=== PATIENT | male | born 1965 | race Caucasian/White ===

== ENCOUNTER → 2016-07-03 | Outpatient (CLI) | payer OTHER ==
[~2016-07-03] MED LIST: AMITRIPTYLINE H25 M1 PO; COZAAR 50MG50 MG/TAB PO; NEXIUM 40MG40 MG PO; ZOCOR 20MG20 MG PO
[2016-07-03 09:07] LABS: HEMATOCRIT 47.2 % (42.0-52.0); HEMOGLOBIN 15.8 g/dl (13.5-18.0); MEAN CELL VOLUME 88 fl (80.0-100.0); MEAN CORPUSCULAR HEMOGLOBIN 30 pg (27.0-31.0); MEAN CORPUSCULAR HGB CONC 34 g/dl (33.0-37.0); MEAN PLATELET VOLUME 11.3 fl (7.4-10.4); PLATELET COUNT 250 K/mm3 (130-400); RED BLOOD COUNT 5.36 M/mm3 (4.20-5.60); WHITE BLOOD COUNT 6.9 K/mm3 (4.8-10.8)
[2016-07-03 09:46] LABS: ADJUSTED CALCIUM 8.9 mg/dL (8.4-10.2); ALBUMIN 4.4 gm/dL (3.5-5.0); CALCIUM 9.2 mg/dL (8.4-10.2); CREATININE, serum 0.8 mg/dL (0.66-1.25); POTASSIUM 3.9 mmol/L (3.4-5.0); TOTAL PROTEIN 7.6 gm/dL (6.4-8.2)
[2016-07-03 10:18] LABS: THYROID STIMULATING HORMONE 0.195 uIU/mL (0.465-4.680)
[2016-07-03 10:27] LABS: PH 5 (5-8); URINE APPEARANCE Hazy; URINE BILIRUBIN Negative (NEGATIVE); URINE BLOOD Negative (NEGATIVE); URINE COLOR Yellow; URINE GLUCOSE Negative (NEGATIVE); URINE KETONE Negative (NEGATIVE); URINE UROBILINOGEN Negative (NEGATIVE)
[2016-07-03 10:36] LABS: SQUAMOUS EPITHELIAL 0-2 /hpf
== END ==
LOC: COL.LAB 08:01
DX: I10 Essential (primary) hypertension (principal)

== ENCOUNTER 2016-08-04 06:53 | Day surgery (SDC) | payer OTHER ==
[~2016-08-04] VITALS: Ht 177.8 cm; Wt 124.5 kg
[~2016-08-04 06:53] MED LIST changes: -COZAAR 50MG50 MG/TAB PO; -ZOCOR 20MG20 MG PO
[2016-08-04 07:35] VITALS: BP 146/113; PULSE 113; TEMP 98.2
[2016-08-04] MEDS ORDERED: COZAAR 50MG50 MG/TAB PO (07:48)
[2016-08-04] MEDS ORDERED: ZOCOR 20MG20 MG PO (07:48)
[2016-08-04 08:55] VITALS: BP 140/97; PULSE 117; TEMP 97.7
[2016-08-04 09:10] VITALS: BP 137/95; PULSE 104; TEMP 97.8
[2016-08-04 09:55] VITALS: BP 113/95; PULSE 112
== END 2016-08-04 09:30 | disposition home or self-care (01) ==
LOC: SDCO 06:53
DX: Z86.010 Personal history of colon polyps (principal); Z80.0 Family history of malignant neoplasm of digestive organs; K63.5 Polyp of colon; K57.30 Diverticulosis of large intestine without perforation or abscess without bleeding; K64.0 First degree hemorrhoids; K58.9 Irritable bowel syndrome, unspecified; I10 Essential (primary) hypertension; E78.00 Pure hypercholesterolemia, unspecified
CPT/HCPCS: OP; J2250; J2405; J3010; J7030

== ENCOUNTER 2017-02-15 14:22 | Emergency (ER) | payer SELFPAY ==
[~2017-02-15] VITALS: Ht 180.3 cm; Wt 122.7 kg
[~2017-02-15 14:22] MED LIST changes: +COZAAR 50MG50 MG/TAB PO; +ZOCOR 20MG20 MG PO
[2017-02-15 14:24] VITALS: TEMP 98.1
[2017-02-15 15:29] LABS: ALANINE AMINOTRANSFERASE 48 U/L (21-72); ALBUMIN 4.8 gm/dL (3.5-5.0); ALKALINE PHOSPHATASE 91 U/L (50-136); ANION GAP 15 mmol/L (7-16); AST,SGOT 20 U/L (15-37); BILIRUBIN,TOTAL 0.6 mg/dL (0.0-1.0); BLOOD UREA NITROGEN 13 mg/dL (9-20); C-REACTIVE PROTEIN 2.5 mg/dL (0.0-0.9); CALCIUM 10.2 mg/dL (8.4-10.2); CARBON DIOXIDE 24 mmol/L (22-30); CHLORIDE 101 mmol/L (98-107); GLUCOSE 218 mg/dL (74-106); LIPASE 79 U/L (23-300); POTASSIUM 3.5 mmol/L (3.4-5.0); SODIUM 140 mmol/L (137-145); TOTAL PROTEIN 8.1 gm/dL (6.4-8.2)
[2017-02-15 15:41] LABS: TROPONIN-I < 0.012 ng/mL (0.000-0.034)
[2017-02-15 15:43] LABS: BASO % 0.2 % (0.0-2.0); EOS % 0.2 % (0-4.0); GRAN # 12.3 (1.4-6.5); GRAN % 81.3 % (42.2-75.2); LYMPH # 1.7 (1.2-3.4); LYMPH % 10.9 % (20.0-51.0); MEAN CELL VOLUME 85 fl (80.0-100.0); MEAN CORPUSCULAR HEMOGLOBIN 30 pg (27.0-31.0); MEAN CORPUSCULAR HGB CONC 35 g/dl (33.0-37.0); MEAN PLATELET VOLUME 12.2 fl (7.4-10.4); MONO # 1.1 (0.1-0.6); MONO % 7.1 % (1.7-9.3); PLATELET COUNT 262 K/mm3 (130-400); RED BLOOD COUNT 5.77 M/mm3 (4.20-5.60); REDCELL DISTRIBUTION WIDTH-CV 12.5 % (11.5-14.5)
[2017-02-15] MEDS ORDERED: PRILOSEC 20MG20 MG PO ×2 (18:16)
[2017-02-15 18:35] VITALS: BP 136/103; PULSE 103
[2017-02-15 18:47] LABS: COLLECTION METHOD CLEAN CATCH
[2017-02-15 19:13] LABS: MUCOUS Present /lpf; PH 5 (5-8); SQUAMOUS EPITHELIAL 0-2 /hpf; URINE APPEARANCE Cloudy; URINE BACTERIA Rare /hpf; URINE BILIRUBIN Negative (NEGATIVE); URINE BLOOD Negative (NEGATIVE); URINE COLOR Yellow; URINE GLUCOSE 1+ (NEGATIVE); URINE KETONE 1+ (NEGATIVE); URINE LEUKOCYTE ESTERASE Negative (NEGATIVE); URINE NITRATE Negative (NEGATIVE); URINE PROTEIN(semi-quant) 1+ (NEGATIVE); URINE RBC 0-2 /hpf; URINE UROBILINOGEN Negative (NEGATIVE)
== END 2017-02-15 18:46 | disposition home or self-care (01) ==
LOC: COL.ER 14:22
PROVIDERS: Family Medicine
DX: E86.0 Dehydration (principal); R10.13 Epigastric pain; I10 Essential (primary) hypertension; K21.9 Gastro-esophageal reflux disease without esophagitis; Z90.49 Acquired absence of other specified parts of digestive tract
CPT/HCPCS: J1170; J2405; J7030

== ENCOUNTER 2017-02-25 16:17 | Inpatient (IN) | payer SELFPAY ==
[~2017-02-25] VITALS: Ht 177.8 cm; Wt 123.6 kg
[~2017-02-25 16:17] MED LIST changes: +PRILOSEC 20MG20 MG PO
[2017-02-25] MEDS ORDERED: HCTZ12.5TAB (16:22)
[2017-02-25 17:05] LABS: BASO % 0.1 % (0.0-2.0); EOS % 0.3 % (0-4.0); GRAN # 11.4 (1.4-6.5); GRAN % 75.6 % (42.2-75.2); HEMATOCRIT 49.9 % (42.0-52.0); HEMOGLOBIN 17.4 g/dl (13.5-18.0); LYMPH # 2.6 (1.2-3.4); LYMPH % 17.3 % (20.0-51.0); MEAN CELL VOLUME 83 fl (80.0-100.0); MEAN CORPUSCULAR HEMOGLOBIN 29 pg (27.0-31.0); MEAN CORPUSCULAR HGB CONC 35 g/dl (33.0-37.0); MEAN PLATELET VOLUME 11.6 fl (7.4-10.4); MONO % 6.3 % (1.7-9.3); PLATELET COUNT 321 K/mm3 (130-400); RED BLOOD COUNT 5.99 M/mm3 (4.20-5.60); REDCELL DISTRIBUTION WIDTH-CV 12.5 % (11.5-14.5)
[2017-02-25 17:18] LABS: ALBUMIN 4.9 gm/dL (3.5-5.0); BILIRUBIN,TOTAL 0.7 mg/dL (0.0-1.0); C-REACTIVE PROTEIN 1.9 mg/dL (0.0-0.9); CALCIUM 10.6 mg/dL (8.4-10.2); CREATININE, serum 0.83 mg/dL (0.66-1.25); POTASSIUM 3.3 mmol/L (3.4-5.0); TOTAL PROTEIN 8.4 gm/dL (6.4-8.2)
[2017-02-25 18:02] LABS: COLLECTION METHOD CLEAN CATCH
[2017-02-25 18:09] LABS: MUCOUS Present /lpf; PH 5 (5-8); SQUAMOUS EPITHELIAL 0-2 /hpf; URINE APPEARANCE Hazy; URINE BACTERIA None Seen /hpf; URINE BILIRUBIN Negative (NEGATIVE); URINE BLOOD Negative (NEGATIVE); URINE COLOR Amber; URINE GLUCOSE 1+ (NEGATIVE); URINE KETONE 2+ (NEGATIVE); URINE LEUKOCYTE ESTERASE Negative (NEGATIVE); URINE NITRATE Negative (NEGATIVE); URINE PROTEIN(semi-quant) 2+ (NEGATIVE)
[2017-02-25 20:28] VITALS: BP 148/102; PULSE 100; TEMP 98.2
[2017-02-25 20:30] VITALS: BP 148/102; PULSE 100; TEMP 98.2
[2017-02-25 21:08] LABS: ALBUMIN 4.4 gm/dL (3.5-5.0); BILIRUBIN,TOTAL 0.6 mg/dL (0.0-1.0); CALCIUM 9.5 mg/dL (8.4-10.2); CREATININE, serum 0.76 mg/dL (0.66-1.25); POTASSIUM 3.7 mmol/L (3.4-5.0); TOTAL PROTEIN 7.6 gm/dL (6.4-8.2)
[2017-02-26] VITALS (13 sets, daily range): BP systolic 126–149; BP diastolic 84–99; PULSE 89–109; TEMP 98.1–98.4
[2017-02-26 06:47] LABS: BASO % 0.2 % (0.0-2.0); EOS # 0.1 (0.0-0.7); EOS % 0.3 % (0-4.0); GRAN % 79.4 % (42.2-75.2); HEMATOCRIT 44.6 % (42.0-52.0); LYMPH # 1.9 (1.2-3.4); LYMPH % 12.7 % (20.0-51.0); MEAN CELL VOLUME 86 fl (80.0-100.0); MEAN CORPUSCULAR HEMOGLOBIN 29 pg (27.0-31.0); MEAN CORPUSCULAR HGB CONC 34 g/dl (33.0-37.0); MEAN PLATELET VOLUME 11.7 fl (7.4-10.4); MONO # 1.1 (0.1-0.6); PLATELET COUNT 266 K/mm3 (130-400); RED BLOOD COUNT 5.19 M/mm3 (4.20-5.60); REDCELL DISTRIBUTION WIDTH-CV 12.7 % (11.5-14.5)
[2017-02-26 06:53] LABS: HEMOGLOBIN 15.1 g/dl (13.5-18.0)
[2017-02-26 07:07] LABS: CHOLESTEROL RISK RATIO 5.2
[2017-02-27 05:35] VITALS: BP 115/64; PULSE 94; TEMP 97.5
[2017-02-27 07:44] LABS: BASO % 0.3 % (0.0-2.0); EOS # 0.2 (0.0-0.7); EOS % 2.1 % (0-4.0); GRAN # 5.7 (1.4-6.5); GRAN % 63.3 % (42.2-75.2); HEMATOCRIT 44.6 % (42.0-52.0); HEMOGLOBIN 14.9 g/dl (13.5-18.0); LYMPH # 2.4 (1.2-3.4); LYMPH % 26.8 % (20.0-51.0); MEAN CELL VOLUME 87 fl (80.0-100.0); MEAN CORPUSCULAR HEMOGLOBIN 29 pg (27.0-31.0); MEAN CORPUSCULAR HGB CONC 33 g/dl (33.0-37.0); MEAN PLATELET VOLUME 11.5 fl (7.4-10.4); MONO # 0.6 (0.1-0.6); MONO % 7.1 % (1.7-9.3); PLATELET COUNT 244 K/mm3 (130-400); RED BLOOD COUNT 5.14 M/mm3 (4.20-5.60); REDCELL DISTRIBUTION WIDTH-CV 12.6 % (11.5-14.5)
[2017-02-27 08:02] LABS: CALCIUM 8.9 mg/dL (8.4-10.2); CREATININE, serum 0.6 mg/dL (0.66-1.25)
[2017-02-27 09:29] VITALS: BP 137/88; PULSE 82; TEMP 98.1
[2017-02-27 13:02] VITALS: BP 131/94; PULSE 102
== END 2017-02-27 16:30 | disposition home or self-care (01) | DRG 305 ==
LOC: COL.ER 16:17 → SURG 18:18
PROVIDERS: Family Medicine; Internal Medicine; Internal Medicine Gastroenterology; Physician Assistant
PROC: 0DB98ZX Excision of Duodenum, Via Natural or Artificial Opening Endoscopic, Diagnostic (ICD-10-PCS; 2017-02-26)
PROC: 0DB68ZX Excision of Stomach, Via Natural or Artificial Opening Endoscopic, Diagnostic (ICD-10-PCS; principal; 2017-02-26 07:30)
DX: I10 Essential (primary) hypertension (principal); E11.9 Type 2 diabetes mellitus without complications; K29.30 Chronic superficial gastritis without bleeding; K58.0 Irritable bowel syndrome with diarrhea; Z87.891 Personal history of nicotine dependence; E87.6 Hypokalemia; K21.0 Gastro-esophageal reflux disease with esophagitis
CPT/HCPCS: 99231-AI; 99232-AI; 99239; C9113; J1170; J1815; J2250; J2405; J2550; J3010; J3480; J7030

== ENCOUNTER → 2017-04-01 | Outpatient (CLI) | payer OTHER ==
[~2017-04-01] MED LIST changes: +HCTZ12.5TAB
== END ==
LOC: SUN.DIA 09:47
DX: E11.9 Type 2 diabetes mellitus without complications (principal); E78.5 Hyperlipidemia, unspecified; I10 Essential (primary) hypertension; E66.9 Obesity, unspecified; Z68.38 Body mass index [BMI] 38.0-38.9, adult; Z71.3 Dietary counseling and surveillance; Z87.891 Personal history of nicotine dependence
CPT/HCPCS: G0108

== ENCOUNTER → 2017-05-19 | Outpatient (CLI) | payer OTHER | LOC: SUN.DIA 13:02 | DX: E11.9 Type 2 diabetes mellitus without complications (principal); E78.5 Hyperlipidemia, unspecified; I10 Essential (primary) hypertension; E66.9 Obesity, unspecified; Z68.38 Body mass index [BMI] 38.0-38.9, adult; Z71.3 Dietary counseling and surveillance; Z87.891 Personal history of nicotine dependence | CPT/HCPCS: G0108 ==

== ENCOUNTER → 2017-08-24 | Outpatient (CLI) | payer OTHER | LOC: SUN.DIA 08:48 | DX: E11.9 Type 2 diabetes mellitus without complications (principal); E78.5 Hyperlipidemia, unspecified; I10 Essential (primary) hypertension; E66.9 Obesity, unspecified; Z68.38 Body mass index [BMI] 38.0-38.9, adult; Z71.3 Dietary counseling and surveillance; Z87.891 Personal history of nicotine dependence | CPT/HCPCS: G0108 ==

== ENCOUNTER → 2017-08-31 | Outpatient (CLI) | payer OTHER ==
[2017-08-31 12:13] LABS: HEMATOCRIT 48.6 % (42.0-52.0); HEMOGLOBIN 16.7 g/dl (13.5-18.0)
[2017-08-31 12:23] LABS: ALBUMIN 4.5 gm/dL (3.5-5.0); BILIRUBIN,TOTAL 0.5 mg/dL (0.0-1.0); CHOLESTEROL RISK RATIO 4.2; CREATININE, serum 0.71 mg/dL (0.66-1.25); POTASSIUM 4.1 mmol/L (3.4-5.0); TOTAL PROTEIN 7.5 gm/dL (6.4-8.2)
[2017-08-31 12:53] LABS: TSH w REFLEX 0.28 uIU/mL (0.465-4.680)
== END ==
LOC: ZLAB.FHCC 11:52
PROVIDERS: Internal Medicine
DX: Z01.89 Encounter for other specified special examinations (principal)

== ENCOUNTER → 2017-12-28 | Outpatient (CLI) | payer OTHER | LOC: SUN.DIA 08:27 | DX: E11.9 Type 2 diabetes mellitus without complications (principal); E78.5 Hyperlipidemia, unspecified; I10 Essential (primary) hypertension; E66.9 Obesity, unspecified | CPT/HCPCS: G0108 ==

== ENCOUNTER → 2018-03-16 | Outpatient (CLI) | payer OTHER | LOC: COL.RAD 13:22 | DX: M25.561 Pain in right knee (principal) ==

== ENCOUNTER → 2018-06-22 | Outpatient (CLI) | payer OTHER ==
[2018-06-22 09:24] LABS: ALBUMIN 4.4 gm/dL (3.5-5.0); BILIRUBIN UNCONJUGATED 0.3 mg/dL (0.0-1.1); BILIRUBIN,DIRECT 0.1 mg/dL (0.0-0.4); BILIRUBIN,TOTAL 0.3 mg/dL (0.0-1.0); TOTAL PROTEIN 7.5 gm/dL (6.4-8.2)
== END ==
LOC: COL.LAB 08:39
PROVIDERS: Internal Medicine Gastroenterology
DX: R10.11 Right upper quadrant pain (principal)

== ENCOUNTER → 2018-06-27 | Outpatient (CLI) | payer OTHER | LOC: SUN.DIA 13:25 | DX: E11.9 Type 2 diabetes mellitus without complications (principal); E78.5 Hyperlipidemia, unspecified; I10 Essential (primary) hypertension; E66.9 Obesity, unspecified | CPT/HCPCS: G0108 ==

== ENCOUNTER → 2018-09-02 | Outpatient (CLI) | payer OTHER ==
[2018-09-02 07:27] LABS: HEMATOCRIT 48.4 % (42.0-52.0); HEMOGLOBIN 16.2 g/dl (13.5-18.0)
[2018-09-02 07:38] LABS: ALBUMIN 4.4 gm/dL (3.5-5.0); BILIRUBIN,TOTAL 0.6 mg/dL (0.0-1.0); CALCIUM 9.9 mg/dL (8.4-10.2); CHOLESTEROL RISK RATIO 6.3; CREATININE, serum 0.78 (0.66-1.25); POTASSIUM 3.9 mmol/L (3.4-5.0); TOTAL PROTEIN 7.6 gm/dL (6.4-8.2)
[2018-09-02 08:08] LABS: THYROID STIMULATING HORMONE 0.219 uIU/mL (0.465-4.680)
== END ==
LOC: COL.LAB 07:00
PROVIDERS: Internal Medicine
DX: E11.9 Type 2 diabetes mellitus without complications (principal); I10 Essential (primary) hypertension

== ENCOUNTER → 2018-10-19 | Outpatient (CLI) | payer OTHER | LOC: COL.LAB 13:12 | DX: Z01.89 Encounter for other specified special examinations (principal) ==

== ENCOUNTER 2019-06-17 12:19 | Emergency (ER) | payer SELFPAY ==
[~2019-06-17] VITALS: Ht 177.8 cm; Wt 120.5 kg
[2019-06-17 12:30] VITALS: TEMP 97.2
[2019-06-17 13:17] LABS: BASO # 0.1 (0.0-0.2); BASO % 0.4 % (0.0-2.0); EOS # 0.5 (0.0-0.7); EOS % 3.8 % (0-4.0); GRAN # 6.9 (1.4-6.5); GRAN % 56.9 % (42.2-75.2); HEMATOCRIT 46.1 % (42.0-52.0); HEMOGLOBIN 15.5 g/dl (13.5-18.0); LYMPH # 3.8 (1.2-3.4); LYMPH % 31.1 % (20.0-51.0); MEAN CELL VOLUME 87 fl (80.0-100.0); MEAN CORPUSCULAR HEMOGLOBIN 29 pg (27.0-31.0); MEAN CORPUSCULAR HGB CONC 34 g/dl (33.0-37.0); MONO # 0.9 (0.1-0.6); MONO % 7.2 % (1.7-9.3); PLATELET COUNT 248 K/mm3 (130-400); RED BLOOD COUNT 5.32 M/mm3 (4.20-5.60); REDCELL DISTRIBUTION WIDTH-CV 12.9 % (11.5-14.5)
[2019-06-17 13:28] LABS: ALBUMIN 4.4 gm/dL (3.5-5.0); BILIRUBIN,TOTAL 0.5 mg/dL (0.0-1.0); CALCIUM 9.8 mg/dL (8.4-10.2); CREATININE, serum 0.8 (0.66-1.25); POTASSIUM 3.6 mmol/L (3.4-5.0); TOTAL PROTEIN 7.5 gm/dL (6.4-8.2)
[2019-06-17 13:30] LABS: C-REACTIVE PROTEIN < 0.5 mg/dL (0.0-0.9)
[2019-06-17 13:39] LABS: TROPONIN-I < 0.012 ng/mL (0.000-0.035)
[2019-06-17 14:27] LABS: COLLECTION METHOD CLEAN CATCH
[2019-06-17 14:37] LABS: MUCOUS Present /lpf; PH 5 (5-8); SQUAMOUS EPITHELIAL None Seen /hpf; URINE APPEARANCE Hazy; URINE BACTERIA None Seen /hpf; URINE BILIRUBIN Negative (NEGATIVE); URINE BLOOD 3+ (NEGATIVE); URINE COLOR Yellow; URINE GLUCOSE Negative (NEGATIVE); URINE KETONE Negative (NEGATIVE); URINE LEUKOCYTE ESTERASE Negative (NEGATIVE); URINE NITRATE Negative (NEGATIVE); URINE PROTEIN(semi-quant) Negative (NEGATIVE); URINE RBC >50 /hpf; URINE UROBILINOGEN Negative (NEGATIVE)
[2019-06-17] MEDS ORDERED: NORCO 325 MG-51 TAB PO (14:39)
[2019-06-17 15:10] VITALS: BP 128/93; PULSE 86
== END 2019-06-17 15:10 | disposition home or self-care (01) ==
LOC: COL.ER 12:19
PROVIDERS: Emergency Medicine
DX: N20.1 Calculus of ureter (principal); I10 Essential (primary) hypertension; E78.5 Hyperlipidemia, unspecified; K21.9 Gastro-esophageal reflux disease without esophagitis; K58.9 Irritable bowel syndrome, unspecified; Z87.891 Personal history of nicotine dependence
CPT/HCPCS: J1200; J2405; J2930; J7030; Q9967

== ENCOUNTER 2019-11-12 17:20 | Inpatient (IN) | payer OTHER ==
[~2019-11-12] VITALS: Ht 177.8 cm; Wt 118.0 kg
[~2019-11-12 17:20] MED LIST changes: +NORCO 325 MG-51 TAB PO
[2019-11-12 17:40] LABS: BASO # 0.1 (0.0-0.2); BASO % 0.4 % (0.0-2.0); EOS # 0.6 (0.0-0.7); EOS % 4.3 % (0-4.0); GRAN # 9.3 (1.4-6.5); GRAN % 68.2 % (42.2-75.2); HEMATOCRIT 46.2 % (42.0-52.0); HEMOGLOBIN 15.5 g/dl (13.5-18.0); LYMPH # 2.7 (1.2-3.4); MEAN CELL VOLUME 86 fl (80.0-100.0); MEAN CORPUSCULAR HEMOGLOBIN 29 pg (27.0-31.0); MEAN CORPUSCULAR HGB CONC 34 g/dl (33.0-37.0); MEAN PLATELET VOLUME 10.9 fl (7.4-10.4); MONO # 0.9 (0.1-0.6); MONO % 6.6 % (1.7-9.3); PLATELET COUNT 263 K/mm3 (130-400); RED BLOOD COUNT 5.37 M/mm3 (4.20-5.60); REDCELL DISTRIBUTION WIDTH-CV 13.2 % (11.5-14.5)
[2019-11-12 17:42] LABS: ALANINE AMINOTRANSFERASE 15 U/L (4-49); ALBUMIN 4.5 gm/dL (3.5-5.0); ALKALINE PHOSPHATASE 61 U/L (50-136); ANION GAP 10 mmol/L (7-16); AST,SGOT 20 U/L (15-37); BILIRUBIN,TOTAL 0.4 mg/dL (0.0-1.0); BLOOD UREA NITROGEN 17 mg/dL (9-20); CALCIUM 9.3 mg/dL (8.4-10.2); CARBON DIOXIDE 33 mmol/L (22-30); CHLORIDE 100 mmol/L (98-107); CREATININE, serum 0.78 (0.66-1.25); GLUCOSE 109 mg/dL (74-106); LIPASE 592 U/L (23-300); SODIUM 143 mmol/L (137-145); TOTAL PROTEIN 7.6 gm/dL (6.4-8.2)
[2019-11-12 17:57] LABS: TROPONIN-I < 0.012 ng/mL (0.000-0.035)
[2019-11-12 21:49] VITALS: BP 160/87; PULSE 82; TEMP 97.5
--- NOTE | 2019-11-12 22:26 | NUR ---
Pt. arrived to the floor. Pt. is A&OX3, assessment complete. INT rt. ac patent. Pt. denies pain. Pt. does report still feeling nauseated. Giving phenergan per orders. Pt. denies further needs, call light within reach.
[2019-11-13] VITALS: BP 107/47; PULSE 88; TEMP 98.5
[2019-11-13 04:37] VITALS: BP 111/67; PULSE 83; TEMP 98.4
[2019-11-13 07:20] LABS: ALBUMIN 4.3 gm/dL (3.5-5.0); BILIRUBIN,TOTAL 0.7 mg/dL (0.0-1.0); CALCIUM 8.6 mg/dL (8.4-10.2); CREATININE, serum 0.6 (0.66-1.25); MAGNESIUM 1.6 mg/dL (1.6-2.3); POTASSIUM 3.1 mmol/L (3.4-5.0); TOTAL PROTEIN 7.2 gm/dL (6.4-8.2)
[2019-11-13 08:26] VITALS: BP 141/95; PULSE 79; TEMP 98.3
--- NOTE | 2019-11-13 11:22 | NUR ---
Patient alert and oriented, answers questions appropriately. See assessment. Abdomen soft, non tender, non distended. Bowel sounds active x4 quads. +Flatus. No c/o tenderness to abdomen with palpation. C/o headache. No other c/o at this time.
[2019-11-13 11:43] VITALS: BP 143/73; PULSE 86; TEMP 98.9
--- NOTE | 2019-11-13 16:48 | NUR ---
Ophthalmic Aide met with patient to discuss discharge planning. Patient lives in [place] with his mom Leora (ph#[phone]) and goes to the [facility] for primary care. Patient obtains medications from [facility] and does not use any DME. Patient does not have Advance Directives and was not interested in designating a DPOA-HC at this time. Patient reports independence with ADLS and plans to return home at discharge.
[2019-11-13 17:15] VITALS: BP 152/93; PULSE 80; TEMP 98.8
[2019-11-13 19:44] VITALS: BP 153/85; PULSE 81; TEMP 98.3
[2019-11-13 21:39] LABS: COLLECTION METHOD CLEAN CATCH
[2019-11-13 21:46] LABS: MUCOUS Present /lpf; PH 6 (5-8); SQUAMOUS EPITHELIAL 0-2 /hpf; URINE APPEARANCE Clear; URINE BACTERIA None Seen /hpf; URINE BILIRUBIN Negative (NEGATIVE); URINE BLOOD 1+ (NEGATIVE); URINE COLOR Yellow; URINE GLUCOSE Negative (NEGATIVE); URINE KETONE Trace (NEGATIVE); URINE LEUKOCYTE ESTERASE Negative (NEGATIVE); URINE NITRATE Negative (NEGATIVE); URINE PROTEIN(semi-quant) Negative (NEGATIVE); URINE RBC 0-2 /hpf; URINE UROBILINOGEN Negative (NEGATIVE)
[2019-11-14 00:16] VITALS: BP 133/86; PULSE 80; TEMP 98.6
[2019-11-14 04:21] VITALS: BP 142/82; PULSE 80; TEMP 98.3
--- NOTE | 2019-11-14 06:00 | NUR ---
Patient has been doing well throughout the night. No complaints of pain or nausea. He has been sleeping most the night. He is independent in the room. He is tolerating clear liquids without issues. Blood sugars have been stable. Explained we need to monitor his output but he has not been using the urinal, he keeps going in the toilet. He is making good urine output. No other changes at this time. Call light within reach.
[2019-11-14 06:26] LABS: CALCIUM 8.4 mg/dL (8.4-10.2); CREATININE, serum 0.57 (0.66-1.25); MAGNESIUM 2.3 mg/dL (1.6-2.3); POTASSIUM 3.3 mmol/L (3.4-5.0)
[2019-11-14 07:29] VITALS: BP 149/95; PULSE 77; TEMP 97.6
[2019-11-14 07:49] LABS: BASO % 0.2 % (0.0-2.0); EOS # 0.1 (0.0-0.7); GRAN # 8.9 (1.4-6.5); GRAN % 74.3 % (42.2-75.2); HEMATOCRIT 42.5 % (42.0-52.0); HEMOGLOBIN 14.3 g/dl (13.5-18.0); LYMPH # 1.8 (1.2-3.4); LYMPH % 15.2 % (20.0-51.0); MEAN CELL VOLUME 87 fl (80.0-100.0); MEAN CORPUSCULAR HEMOGLOBIN 29 pg (27.0-31.0); MEAN CORPUSCULAR HGB CONC 34 g/dl (33.0-37.0); MEAN PLATELET VOLUME 11.7 fl (7.4-10.4); MONO % 8.7 % (1.7-9.3); PLATELET COUNT 242 K/mm3 (130-400); RED BLOOD COUNT 4.86 M/mm3 (4.20-5.60); REDCELL DISTRIBUTION WIDTH-CV 13.1 % (11.5-14.5)
--- NOTE | 2019-11-14 10:45 | NUR ---
Initial visit; Patient thanked Program Management Professional for stopping though wasn't receptive to prayer at this time.
[2019-11-14 12:02] VITALS: BP 140/91; PULSE 86; TEMP 97.7
[2019-11-14] MEDS ORDERED: NORCO 325 MG-51 TAB PO (15:00)
[2019-11-14] MEDS ORDERED: ZOFRAN ODT4 MG PO (15:01)
--- NOTE | 2019-11-14 16:00 | NUR ---
Discharge education provided to patient. Educated on follow up appointments and all new medications. Patient educated on low fat diet. All questions answered. INT discontinued, catheter tip intact. Denies further needs at this time.
== END 2019-11-14 14:30 | disposition home or self-care (01) | DRG 440 ==
LOC: COL.ER 17:20 → SURG 19:21
PROVIDERS: Nurse Practitioner Primary Care; Physician Assistant
DX: K85.00 Idiopathic acute pancreatitis without necrosis or infection (principal); D72.829 Elevated white blood cell count, unspecified; E87.6 Hypokalemia; I10 Essential (primary) hypertension; E78.5 Hyperlipidemia, unspecified; K21.9 Gastro-esophageal reflux disease without esophagitis; E11.9 Type 2 diabetes mellitus without complications; K58.9 Irritable bowel syndrome, unspecified; Z90.49 Acquired absence of other specified parts of digestive tract; Z87.891 Personal history of nicotine dependence
CPT/HCPCS: 99239; C9113; G0378; J1200; J1650; J2270; J2405; J2550; J3475; J3480; J7030; Q9967

== ENCOUNTER 2021-06-22 15:26 | Inpatient (IN) | payer OTHER ==
[~2021-06-22] VITALS: Ht 177.8 cm; Wt 116.0 kg
[~2021-06-22 15:26] MED LIST changes: +ZOFRAN ODT4 MG PO
[2021-06-22] MEDS ORDERED: ZYRTEC 10MG10 MG PO (17:31)
[2021-06-22] MEDS ORDERED: ZIAC 10/6.25M1 UDTAB PO (17:31)
[2021-06-22] MEDS ORDERED: ASPIRIN 81M81 MG/TA2 PO (17:31)
[2021-06-22] MEDS ORDERED: QUESTRAN4 GM/9 GM PO (17:32)
[2021-06-22] MEDS ORDERED: HCTZ 25MG TAB25 MG PO (17:32)
[2021-06-22] MEDS ORDERED: GLUCOPHAGE1000 MG PO (17:33)
[2021-06-22 18:03] LABS: BASO % 0.1 % (0.0-2.0); EOS # 0.1 K/mm3 (0.0-0.7); EOS % 0.7 % (0.0-4.0); GRAN # 10.8 K/mm3 (1.4-6.5); GRAN % 80.2 % (42.2-75.2); HEMATOCRIT 42.6 % (42.0-52.0); HEMOGLOBIN 14.8 g/dl (13.5-18.0); LYMPH # 1.7 K/mm3 (1.2-3.4); LYMPH % 12.4 % (20.0-51.0); MEAN CELL VOLUME 84 fl (80.0-100.0); MEAN CORPUSCULAR HEMOGLOBIN 29 pg (27-31); MEAN CORPUSCULAR HGB CONC 35 g/dl (33.0-37.0); MEAN PLATELET VOLUME 11.7 fl (7.4-10.4); MONO # 0.8 K/mm3 (0.1-0.6); MONO % 6.2 % (1.7-9.3); PLATELET COUNT 245 K/mm3 (130-400); REDCELL DISTRIBUTION WIDTH-CV 12.8 % (11.5-14.5)
[2021-06-22 18:22] LABS: ALANINE AMINOTRANSFERASE 13 U/L (0-55); ALBUMIN 3.9 gm/dL (3.5-5.0); ALKALINE PHOSPHATASE 46 U/L (40-150); ANION GAP 16 mmol/L (7-16); AST,SGOT 11 U/L (5-34); BILIRUBIN,TOTAL 0.7 mg/dL (0.2-1.2); BLOOD UREA NITROGEN 11 mg/dL (8-26); CALCIUM 8.4 mg/dL (8.4-10.2); CARBON DIOXIDE 36 mmol/L (22-29); CHLORIDE 92 mmol/L (98-107); GLUCOSE 150 mg/dL (70-99); SODIUM 144 mmol/L (136-145); TOTAL PROTEIN 7.2 gm/dL (6.2-8.1)
[2021-06-22 18:27] LABS: TROPONIN-I 0.016 ng/mL (0.00-0.033)
[2021-06-22 18:34] LABS: POTASSIUM 2.1 mmol/L (3.5-4.5)
[2021-06-22 20:00] LABS: ALCOHOL(ethanol),MEDICAL < 10 mg/dL (0-10); MAGNESIUM 0.6 mg/dL (1.6-2.6)
[2021-06-22 20:16] LABS: LIPASE > 1200 U/L (8-78)
--- NOTE | 2021-06-22 23:10 | NUR ---
PT ARRIVED TO ROOM 347 VIA CART, ABLE TO TRANSFER FROM CART TO BED UNASSISTED. HAS IVF TO LEFT AC INFUSING WITHOUT PROBLEM. IS ALERT AND ORIENTED X4.
[2021-06-22] MEDS ORDERED: ZEBETA10 MG PO (23:28)
[2021-06-22 23:36] VITALS: BP 131/74; PULSE 66; TEMP 98.3
[2021-06-23] MEDS ORDERED: ZOCOR 40MG40 MG PO (00:04)
[2021-06-23] MEDS ORDERED: ADVIL200 MG PO (00:07)
[2021-06-23] MEDS ORDERED: COMPLETE MULTI1 TAB PO (00:07)
[2021-06-23 00:14] LABS: INR 1.2 (0.8-3.0)
[2021-06-23 00:18] LABS: PHOSPHOROUS 3.3 mg/dL (2.3-4.7)
--- NOTE | 2021-06-23 00:25 | NUR ---
MEDICATED WITH DILAUDID 0.25MG IVP FOR PAIN TO RUQ 5/10, ZOFRAN GIVEN AT THIS TIME WELL. HS MED PO GIVEN WITH SIP OF WATER. REMAINS NPO.
[2021-06-23 00:43] LABS: BASO % 0.2 % (0.0-2.0); EOS # 0.2 K/mm3 (0.0-0.7); EOS % 1.1 % (0.0-4.0); GRAN % 76.7 % (42.2-75.2); HEMATOCRIT 39.6 % (42.0-52.0); HEMOGLOBIN 14.1 g/dl (13.5-18.0); LYMPH # 1.9 K/mm3 (1.2-3.4); LYMPH % 13.5 % (20.0-51.0); MEAN CELL VOLUME 83 fl (80.0-100.0); MEAN CORPUSCULAR HEMOGLOBIN 29 pg (27-31); MEAN CORPUSCULAR HGB CONC 36 g/dl (33.0-37.0); MEAN PLATELET VOLUME 11.4 fl (7.4-10.4); MONO # 1.2 K/mm3 (0.1-0.6); MONO % 8.2 % (1.7-9.3); PLATELET COUNT 216 K/mm3 (130-400); REDCELL DISTRIBUTION WIDTH-CV 12.9 % (11.5-14.5)
[2021-06-23 03:44] VITALS: BP 119/73; PULSE 72; TEMP 98.4
--- NOTE | 2021-06-23 04:33 | NUR ---
MEDICATED WITH DILAUDID 0.25MG IVP FOR PAIN TO EPIGASTRIC PAIN. IV CONTINUES TO LEFT AC WITHOUT REDNESS OR SWELLING.
--- NOTE | 2021-06-23 05:52 | NUR ---
MEDICATED WITH ZOFRAN 4MG IVP FOR NAUSEA/DRY HEAVES. REPORTS RT FLANK PAIN AT THIS TIME. WAITING ON PT TO VOID FOR UA.
[2021-06-23 06:13] LABS: COLLECTION METHOD CLEAN CATCH
[2021-06-23 06:19] LABS: MUCOUS Present (NOT PRESENT); PH 6 (5-8); SQUAMOUS EPITHELIAL None Seen /hpf (0-10); URINE APPEARANCE Clear (CLEAR/HAZY); URINE BACTERIA None Seen /hpf (NONE SEEN); URINE BILIRUBIN Negative (NEGATIVE); URINE BLOOD Negative (NEGATIVE); URINE COLOR Yellow (YELLOW); URINE GLUCOSE Negative (NEGATIVE); URINE KETONE 2+ (NEGATIVE); URINE LEUKOCYTE ESTERASE Negative (NEGATIVE); URINE NITRATE Negative (NEGATIVE); URINE PROTEIN(semi-quant) Negative (NEGATIVE); URINE RBC 0-2 /hpf (0-2); URINE UROBILINOGEN Negative (NEGATIVE)
[2021-06-23 07:45] LABS: ALBUMIN 3.3 gm/dL (3.5-5.0); BILIRUBIN,TOTAL 0.7 mg/dL (0.2-1.2); CALCIUM 7.6 mg/dL (8.4-10.2); CREATININE, serum 0.71 mg/dL (0.72-1.25); MAGNESIUM 1.7 mg/dL (1.6-2.6); TOTAL PROTEIN 6.4 gm/dL (6.2-8.1)
[2021-06-23 07:48] LABS: POTASSIUM 2.5 mmol/L (3.5-4.5)
[2021-06-23 08:00] VITALS: BP 135/77; PULSE 78; TEMP 98.3
--- NOTE | 2021-06-23 08:02 | NUR ---
MERA WELLS. CRITICAL K+ CALLED TO CHANTELLE STONER.
--- NOTE | 2021-06-23 09:30 | NUR ---
Patient to MRI this am with tech. Patient was premedicated for procedure with dilaudid for continued abdominal pain. Continue with electrolytes replacment per protocol. Tele on. Will monitor.
--- NOTE | 2021-06-23 09:36 | NUR ---
Initial visit; Patient thanked Cleat Blanker for offering God's blessings and keeping him in her prayers.
--- NOTE | 2021-06-23 11:15 | NUR ---
Patient resting since return from M[facility]. Hospitalist team rounded. Plan of care reviewed. Mg replacement per orders. Patient reports continued pain, but reports the nausea is more significant that pain. We discussed potential for pheneragan. Social work in to see patient. Jorge beyer.
--- NOTE | 2021-06-23 11:17 | NUR ---
forestry workers met with patient to discuss discharge plan. Patient lives at home with his mother Leora [phone] in [place]. He reports to [facility] fully independent with his ADL's and does not utilize any DME to assist with mobility. Patient has no home oxygen needs. Patient confirmed that he still seeks primary care needs through the [facility] and he utilizes [facility] for medications. Patient states that at times he does have trouble affording his medications but that the pharmacy is good about "helping me out". Patient does not have a DPOA-HC established. He has never been and has no children. Patients established legal next of kin is his mother Leora. Notified patient that i would reach out to our financial counselor to assist with filling out a FAA. Discharge plan: Home
[2021-06-23 11:57] VITALS: BP 100/52; PULSE 75; TEMP 99
--- NOTE | 2021-06-23 12:08 | NUR ---
Spoke to Clear liquids orders and provided to ousmane per his request, encouraged him to take it slow.
--- NOTE | 2021-06-23 12:56 | NUR ---
Critical Potassium called to Renetta Falcon. 2.5. Replacement orders per protocol.
--- NOTE | 2021-06-23 14:15 | NUR ---
PATIENT AT SINK BRUSHING HIS TEETH. REPORTS PAIN BETTER MANAGED AT THIS TIME. CONTINUE WITH K+ REPLACEMENT.
[2021-06-23 15:35] VITALS: BP 135/76; PULSE 68; TEMP 98.5
--- NOTE | 2021-06-23 19:14 | NUR ---
Patiet resting, sleeping soundly. COntinue with K+ replacement. Bedside report to Yashira RN
--- NOTE | 2021-06-23 20:02 | NUR ---
ASSESSMENT COMPLETE. PT. SITTING UP IN CHAIR. A&O. PT. COMPLANING OF BACK PAIN. DILIUD WAS GIVEN (SEE EMAR). AIR MATTRESS WAS PUT ON BED PER PT. REQUEST. PT. BACK IN BED, WATCHING TV. CALL LIGHT WITHIN REACH. NO FURTHER NEEDS AT THIS TIME.
[2021-06-23 20:06] VITALS: BP 138/83; PULSE 71; TEMP 97.1
--- NOTE | 2021-06-23 21:35 | NUR ---
PT REPORTS BACK PAIN, STATES "I CAN'T TAKE MUCH MORE OF THIS". ALSO REPORTS DRY HEAVES. MEDICATED WITH ZOFRAN AND APPLIED KPAD TO HIS BACK.
--- NOTE | 2021-06-23 22:02 | NUR ---
SPOKE WITH JOSELUIS STONER REGARDING PTS BACK PAIN AND ONLY HAVING IV DILAUDID, NEW ORDERS GIVEN. MEDICATED WITH NORCO 5/325MG 1 PO NOW AND MELATONIN 9MG PO FOR SLEEP.
[2021-06-24 00:18] VITALS: BP 137/74; PULSE 83; TEMP 98.5
[2021-06-24 04:25] VITALS: BP 144/64; PULSE 79; TEMP 98.8
[2021-06-24 06:55] LABS: BASO % 0.1 % (0.0-2.0); EOS # 0.1 K/mm3 (0.0-0.7); EOS % 0.7 % (0.0-4.0); GRAN # 13.3 K/mm3 (1.4-6.5); GRAN % 82.3 % (42.2-75.2); HEMATOCRIT 38.3 % (42.0-52.0); HEMOGLOBIN 13.2 g/dl (13.5-18.0); LYMPH # 1.4 K/mm3 (1.2-3.4); LYMPH % 8.6 % (20.0-51.0); MEAN CELL VOLUME 85 fl (80.0-100.0); MEAN CORPUSCULAR HEMOGLOBIN 29 pg (27-31); MEAN CORPUSCULAR HGB CONC 35 g/dl (33.0-37.0); MEAN PLATELET VOLUME 12.3 fl (7.4-10.4); MONO # 1.3 K/mm3 (0.1-0.6); MONO % 7.8 % (1.7-9.3); PLATELET COUNT 252 K/mm3 (130-400); RED BLOOD COUNT 4.51 M/mm3 (4.20-5.60); REDCELL DISTRIBUTION WIDTH-CV 13.1 % (11.5-14.5)
[2021-06-24 07:12] LABS: ALBUMIN 3.1 gm/dL (3.5-5.0); BILIRUBIN,TOTAL 0.8 mg/dL (0.2-1.2); CALCIUM 7.4 mg/dL (8.4-10.2); CREATININE, serum 0.68 mg/dL (0.72-1.25); MAGNESIUM 1.9 mg/dL (1.6-2.6); TOTAL PROTEIN 6.4 gm/dL (6.2-8.1)
[2021-06-24 07:14] LABS: POTASSIUM 2.7 mmol/L (3.5-4.5)
[2021-06-24 07:23] VITALS: BP 135/70; PULSE 78; TEMP 98.9
--- NOTE | 2021-06-24 08:37 | NUR ---
Patient sitting in bed upon entering the room. Patient is A&Ox4, and independent. Patient has IV fluids infusing at the ordered rate. Patient informed this RN that he would be leaving today, as he cannot sleep in the hospital bed anymore. production supervisor off shift RN replaced the mattress and did everything possible to make the patient more comfortable. Patient has call light w/in reach and has been encouraged to call if any needs arise.
[2021-06-24 11:14] VITALS: BP 143/86; PULSE 74; TEMP 98.8
[2021-06-24] MEDS ORDERED: K-DUR20 MEQ PO (14:23)
[2021-06-24] MEDS ORDERED: MAG-OX 400400 MG/TAB PO (14:24)
[2021-06-24] MEDS ORDERED: ZOFRAN ODT4 MG PO (14:28)
[2021-06-24] MEDS ORDERED: NORCO 325 MG-51 TAB PO (14:28)
--- NOTE | 2021-06-24 16:52 | NUR ---
Patient discharged home. IV and telemetry discontinued by this RN. All discharge instructions/education discussed. Patient verbalized understanding and signed appropriate paperwork. Patient denied any concerns at the time of discharge. Patient escorted out by this RN.
== END 2021-06-24 15:55 | disposition home or self-care (01) | DRG 439 ==
LOC: COL.ER 15:26 → SURG 22:31
PROVIDERS: Family Medicine; Nurse Practitioner Family; Physician Assistant; ADMIT Internal Medicine
DX: K85.90 Acute pancreatitis without necrosis or infection, unspecified (principal); E87.3 Alkalosis; I10 Essential (primary) hypertension; E78.5 Hyperlipidemia, unspecified; E87.6 Hypokalemia; K21.9 Gastro-esophageal reflux disease without esophagitis; E87.8 Other disorders of electrolyte and fluid balance, not elsewhere classified; E11.65 Type 2 diabetes mellitus with hyperglycemia; E83.42 Hypomagnesemia; K58.9 Irritable bowel syndrome, unspecified; K86.1 Other chronic pancreatitis; Z79.84 Long term (current) use of oral hypoglycemic drugs; Z79.82 Long term (current) use of aspirin; Z87.891 Personal history of nicotine dependence; Z23 Encounter for immunization
CPT/HCPCS: 99223-AI; 99232-AI; 99233-AI; 99239; C9113; J1170; J1650; J1815; J2270; J2405; J3475; J3480; J7030; Q9967

== ENCOUNTER → 2021-06-27 | Outpatient (CLI) | payer OTHER ==
[~2021-06-27] MED LIST changes: +ADVIL200 MG PO; +ASPIRIN 81M81 MG/TA2 PO; +COMPLETE MULTI1 TAB PO; +GLUCOPHAGE1000 MG PO; +HCTZ 25MG TAB25 MG PO; +K-DUR20 MEQ PO; +MAG-OX 400400 MG/TAB PO; +QUESTRAN4 GM/9 GM PO; +ZEBETA10 MG PO; +ZIAC 10/6.25M1 UDTAB PO; +ZOCOR 40MG40 MG PO; +ZYRTEC 10MG10 MG PO
[2021-06-27 09:06] LABS: CALCIUM 8.8 mg/dL (8.4-10.2); CREATININE, serum 0.76 mg/dL (0.72-1.25); MAGNESIUM 1.4 mg/dL (1.6-2.6); POTASSIUM 3.3 mmol/L (3.5-4.5)
== END ==
LOC: COL.LAB 08:21
PROVIDERS: Physician Assistant
DX: E87.6 Hypokalemia (principal); E83.42 Hypomagnesemia

== ENCOUNTER 2023-10-25 08:33 | Day surgery (SDC) | payer SELFPAY ==
[~2023-10-25] VITALS: Ht 177.8 cm; Wt 112.8 kg
[~2023-10-25 08:33] MED LIST changes: +LR 1,000 ML IV SCH; +Ondansetron 4 MG/2 ML VIAL IV PRN
[2023-10-25] MEDS ORDERED: GLUCOTROL XL2.5 MG PO (09:27)
[2023-10-25] MEDS ORDERED: BENTYL 10MG10 MG/CAP PO (09:27)
[2023-10-25] MEDS ORDERED: CRESTOR 10MG10 MG PO (09:28)
[2023-10-25] MEDS ORDERED: B12 PO (09:28)
[2023-10-25 09:43] VITALS: BP 124/78; PULSE 80; TEMP 97.9
[2023-10-25 10:56] VITALS: TEMP 97
[2023-10-25 11:00] VITALS: BP 123/81; PULSE 77
[2023-10-25 11:15] VITALS: BP 125/84; PULSE 78
[2023-10-25 11:30] VITALS: BP 109/65; PULSE 79
--- NOTE | 2023-10-25 12:33 | NUR ---
1100 PATIENT RETURNS TO [facility] VIA CART. PT AWAKE AND ALERT. RESPIRATIONS UNLABORED. AMBULATED TO RECLINER CHAIR WITH 2:1 SBA. PT DENIES NAUSEA OR ABDOMINAL PAIN. HOOKED UP TO MONITOR AND VS OBTAINED. CALL LIGHT AT SIDE AND VIJAY PRESENT. 1110 PATIENT TOLERATING ICE WATER AND MUFFIN WITHOUT NAUSEA OR DIFFICULTY SWALLOWING. 1115 DR. BULLOCK IN ROOM SPEAKING WITH PATIENT. 1125 D/C INSTRUCTIONS REVIEWED WITH PATIENT. PT VERBALIZED UNDERSTANDING AND A COPY OF INSTRUCTIONS PROVIDED IN D/C FOLDER. 1135 PATIENT DRESSES SELF. 1145 PATIENT DISCHARGED FROM UNIT VIA W/C TO A PERSONAL VEHICLE. PT LEFT HOSPITAL IN STABLE CONDITION.
--- NOTE | 2023-10-25 12:38 | NUR ---
1100 PATIENT RETURNS TO [facility] VIA CART. PT AWAKE AND ALERT. RESPIRATIONS UNLABORED. AMBULATED TO RECLINER CHAIR WITH 2:1 SBA. PT DENIES NAUSEA OR ABDOMINAL PAIN. HOOKED UP TO MONITOR AND VS OBTAINED. CALL LIGHT AT SIDE. 1105 PATIENT TOLERATING WATER AND MUFFIN WITHOUT NAUSEA OR DIFFICULTY SWALLOWING. 1115 DR. BULLOCK IN ROOM SPEAKING WITH PATIENT. 1125 D/C INSTRUCTIONS REVIEWED WITH PATIENT. PT VERBALIZED UNDERSTANDING AND A COPY OF INSTRUCTIONS PROVIDED IN D/C FOLDER. 1135 PATIENT DRESSES SELF. 1145 PATIENT DISCHARGED FROM UNIT VIA W/C TO A PERSONAL VEHICLE. PT LEFT HOSPITAL IN STABLE CONDITION.
== END 2023-10-25 11:45 | disposition home or self-care (01) ==
LOC: SDCO 08:33
DX: Z12.11 Encounter for screening for malignant neoplasm of colon (principal); Z80.0 Family history of malignant neoplasm of digestive organs; D12.5 Benign neoplasm of sigmoid colon; D12.8 Benign neoplasm of rectum; K57.30 Diverticulosis of large intestine without perforation or abscess without bleeding; K64.0 First degree hemorrhoids; E11.9 Type 2 diabetes mellitus without complications; Z79.84 Long term (current) use of oral hypoglycemic drugs
CPT/HCPCS: J2704; J7120